=== PATIENT | female | born 1980 | race African-American/Black ===

== ENCOUNTER 2021-03-17 20:33 | Emergency (ER) | payer MEDICARE, OTHER, MEDICAID ==
[~2021-03-17] VITALS: Ht 170.2 cm; Wt 134.7 kg
[2021-03-17 20:44] VITALS: BP 128/63
[2021-03-17 21:42] LABS: BASOPHILS # (AUTO) 0.1 X10'3 (0-0.2); BASOPHILS % (AUTO) 0.5 % (0-1); EOSINOPHILS # (AUTO) 0.2 X10'3 (0-0.9); EOSINOPHILS % (AUTO) 2.5 % (0-6); HEMATOCRIT 33.9 % (35.0-45.0); HEMOGLOBIN 11.1 g/dl (12.0-16.0); LYMPHOCYTES # (AUTO) 2.8 X10'3 (1.1-4.8); MEAN CORPUSCULAR HEMOGLOBIN 31.6 PG (27.0-31.0); MEAN CORPUSCULAR HGB CONC 32.7 g/dL (33.0-36.5); MEAN CORPUSCULAR VOLUME 96.6 FL (78-98); MEAN PLATELET VOLUME 9.7 FL (7.4-10.4); MONOCYTES # (AUTO) 0.6 X10'3 (0-0.9); PLATELET COUNT 279 X10'3 (140-440); WHITE BLOOD COUNT 9.7 X10'3 (4.5-11.0)
[2021-03-17 21:50] LABS: ALANINE AMINOTRANSFERASE 23 U/L (12-78); ALBUMIN 2.8 G/DL (3.4-5.0); ALBUMIN/GLOBULIN RATIO 0.6 (1.1-1.5); ALKALINE PHOSPHATASE 98 IU/L (46-116); ANION GAP 8 (8-16); ASPARTATE AMINO TRANSFERASE 24 U/L (10-37); BILIRUBIN,TOTAL 0.2 MG/DL (0.1-1.0); BLOOD UREA NITROGEN 6 MG/DL (7-18); BUN/CREATININE RATIO 9.5 (6.6-38.0); CALCIUM 8.1 MG/DL (8.5-10.1); CHLORIDE 107 MMOL/L (99-107); CREATININE 0.63 MG/DL (0.40-0.90); GLUCOSE 82 MG/DL (70-104); LIPASE 93 U/L (73-393); SODIUM 141 MMOL/L (135-145); TOTAL CARBON DIOXIDE 26.2 MMOL/L (24-32); TOTAL PROTEIN 7.4 G/DL (6.4-8.2); eGFR > 90 ML/MIN
[2021-03-17 22:01] LABS: POTASSIUM 4.3 MMOL/L (3.5-5.1)
[2021-03-17 22:37] LABS: CLARITY,URINE SLIGHTLY CLOUDY (Clear); COLOR,URINE YELLOW (Yellow); GLUCOSE, URINE NEGATIVE (Neg); KETONES,URINE NEGATIVE (Neg); LEUKOCYTE ESTERASE ,URINE NEGATIVE (Neg); NITRITES, URINE NEGATIVE (Neg); OCCULT BLOOD,URINE NEGATIVE (Neg); PROTEIN,URINE NEGATIVE (Neg); URINE HCG NEGATIVE (NEG)
[2021-03-17 22:57] LABS: UA COLLECTION TYPE CLN CATCH MIDSTREAM
[2021-03-17] MEDS ORDERED: RIVA20TA PO (22:58)
[2021-03-17 22:59] LABS: BACTERIA,URINE 3+ /HPF (Neg); MUCUS STRANDS MODERATE /LPF (Neg); RBC,URINE NONE SEEN /HPF (0-2); SQUAMOUS EPITHELIAL CELL,UR MANY /LPF (FEW); WBC,URINE 0-4 /HPF (0-4)
[2021-03-17] MEDS ORDERED: azithromycin 250mg tablet PO ONE (23:25)
[2021-03-17] MEDS ORDERED: metroNIDAZOLE 500mg tablet PO ONE (23:25)
[2021-03-17] MEDS ORDERED: fluconazole 150mg tablet PO ONE (23:25)
[2021-03-17] MEDS ORDERED: CefTRIAXone 250MG IM Kit w/LIDOcaine IM ONE (23:25)
[2021-03-18] MEDS ORDERED: ONDA4TAB6 PO (01:28)
[2021-03-18] MEDS ORDERED: HYDR-3964 PO (01:28)
[2021-03-18] MEDS ORDERED: ketorolac tromethamine 15mg/ml inj. IM ONE (01:30)
== END 2021-03-18 01:59 | disposition home or self-care (01) ==
LOC: ER 20:34
DX: N76.0 Acute vaginitis (principal); R10.30 Lower abdominal pain, unspecified; R10.9 Unspecified abdominal pain; Z86.718 Personal history of other venous thrombosis and embolism; Z88.6 Allergy status to analgesic agent; Z88.2 Allergy status to sulfonamides; Z88.8 Allergy status to other drugs, medicaments and biological substances; Z79.899 Other long term (current) drug therapy
CPT/HCPCS: 36415; 74176; 80053; 81001; 81025; 83690; 85025; 87491; 87591; 96372; 99284; J0696; J1885; J3490